=== PATIENT | male | born 1960 | race Native Hawaiian/Other Pacific Islander ===

== ENCOUNTER 2019-04-17 06:45 | Outpatient (CLI) | payer OTHER ==
[2019-04-17 07:56] LABS: POTASSIUM 5.1 mmol/L (3.6-5.2)
== END 2019-04-17 21:38 | disposition home or self-care (01) ==
LOC: LABW 06:45
PROVIDERS: Internal Medicine
DX: N18.9 Chronic kidney disease, unspecified (principal); E87.5 Hyperkalemia
CPT/HCPCS: 36415; 80048

== ENCOUNTER 2020-07-10 15:27 | Outpatient (CLI) | payer OTHER ==
[2020-07-10 16:01] LABS: PLATELET COUNT 136 K/uL (142-355)
[2020-07-10 16:05] LABS: POTASSIUM 5.8 mmol/L (3.6-5.2)
== END 2020-07-10 22:31 | disposition home or self-care (01) ==
LOC: LAB 15:27
PROVIDERS: Internal Medicine
DX: R19.7 Diarrhea, unspecified (principal); E11.9 Type 2 diabetes mellitus without complications; I25.10 Atherosclerotic heart disease of native coronary artery without angina pectoris; R31.9 Hematuria, unspecified
CPT/HCPCS: 36415; 80048; 81000; 83036; 83630; 85027; 87015; 87045; 87324; 87328; 87329; 87449; 87899

== ENCOUNTER 2020-11-19 14:45 | Inpatient (IN) | payer OTHER ==
[~2020-11-19] VITALS: Ht 185.4 cm; Wt 79.5 kg
[2020-11-19 17:35] LABS: PLATELET COUNT 105 K/uL (142-355)
[2020-11-19 17:52] LABS: POTASSIUM 5.8 mmol/L (3.6-5.2); SODIUM 135 mmol/L (136-145)
[2020-11-19 18:21] VITALS: BP 109/49; TEMP 98.2; Ht 185.4 cm; Wt 79.5 kg
--- NOTE | 2020-11-19 18:51 | NUR ---
11/19/2020 1850 PT MOVED TO ROOM 1124 COVID 19 POSTITVE.ORIENTED TO ROOM CALL LIGHT WITHIN REACH.CC
[2020-11-19] MEDS ORDERED: ALPR0.5T24 PO (19:18)
[2020-11-19] MEDS ORDERED: [UNRECOGNIZED DRUG - OTHER] SC (19:21)
[2020-11-19] MEDS ORDERED: TRICOR145 M1 PO (19:24)
[2020-11-19] MEDS ORDERED: TRESIBA100 UNIT/M SC (19:25)
[2020-11-19] MEDS ORDERED: ROSUVASTATIN CA40 MG PO (19:26)
[2020-11-19] MEDS ORDERED: BRILINTA90 MG PO (19:27)
[2020-11-19] MEDS ORDERED: FUROSEMIDE20 MG PO (19:28)
[2020-11-19] MEDS ORDERED: METO50TA27 PO (19:28)
[2020-11-19] MEDS ORDERED: ASPIRIN DR81 MG PO (19:29)
[2020-11-19] MEDS ORDERED: EDARBI PO (19:31)
[2020-11-19 19:43] VITALS: BP 105/43; TEMP 99.4
[2020-11-19 23:36] VITALS: BP 89/54; TEMP 98.8
[2020-11-20 04:12] VITALS: BP 93/36; TEMP 98.5
[2020-11-20 04:35] LABS: PLATELET COUNT 73 K/uL (142-355)
--- NOTE | 2020-11-20 04:48 | NUR ---
PATIENT IV SITE IN LF AC INFILTRATED. IT WAS D/C AND THE SITE IS CLEAN DRY AND INTACT. THE OLD CATHITER TIP IS INTACT. THE SEW SITE IS A 22G TO THE RT FOREARM. THE SITE IS PATIENT AND CLEAN DRY AND INTACT
--- NOTE | 2020-11-20 07:00 | NUR ---
REC'D REPORT FROM ZULEIMA MASTERSON RN
--- NOTE | 2020-11-20 07:30 | NUR ---
PT LAYING IN BED ON HIS BACK RESTING QUIETLY WITH EYES CLOSED. IVF NS INFUSING AT 200 ML/HR WITHOUT DIFFICULTY. PT V/S AND BLOOD SUGAR OBTAINED AT THIS TIME. PT DENIES ANY NEEDS OR C/O AT THIS TIME.
[2020-11-20 08:00] VITALS: BP 97/44; TEMP 97.9
--- NOTE | 2020-11-20 08:30 | NUR ---
NOTIFIED PT THAT I NEEDED HIM TO TRY AND VOID. IF UNABLE TO VOID AT THIS TIME I WOULD HAVE TO INSERT A TRUJILLO CATHETER PER DR. GUZMAN. PT STATES "OK, I CAN PROBABLY GO I JUST HAVE NOT GOTTEN UP TO TRY BECAUSE I AM COLD". INFORMED PT I WOULD BE BACK IN ABOUT 15 TO 20 MINUTES TO CHECK AND SEE IF HE WAS ABLE TO VOID. PT VERBALIZES UNDERSTANDING.
--- NOTE | 2020-11-20 08:45 | NUR ---
PT NOTED TO VOID 400CC DARK YELLOW URINE AT THIS TIME. DR. GUZMAN NOTIFIED. DR. GUZMAN STATES "OK GOOD, DID JESSENIA TELL YOU I NEEDED A SAMPLE FOR A UA AND BNP." WILL OBTAIN UA AND BNP PER DR. GUZMAN' ORDERES. DR. GUZMAN STATES "I'M OK WITH HIM NOT HAVING THE TRUJILLO, WE JUST NEED TO MONITOR HIS OUTPUT AND I NEED THAT UA AND BNP SO I CAN SEE IF HIS KIDNEYS ARE GOING TO START BACK UP OR IF I NEED TO SEE ABOUT GETTING HIM SOMEWHRE OR DR. HAIR([facility]) SEEING HIM, JUST GET IT NEXT TIME WILL BE FINE."
--- NOTE | 2020-11-20 09:45 | NUR ---
NEW BAG OF IV FLUIDS STARTED ON PT, AM MED GIVEN. AM ASSESSMENT COMPLETED AT THIS TIME. PT TOLERATED WELL. PT DENIES ANY C/O OR DIFFICULTYS.
--- NOTE | 2020-11-20 10:12 | NUR ---
PT TALKING ON CELL PHONE AT THIS TIME.
--- NOTE | 2020-11-20 11:30 | NUR ---
PT CALLED TO [facility] TO REPORT HE HAD UA SAMPLE. OBTAINED URINE FROM PT FOR UA. 400CC YELLOW URINE NOTED. PT TALKING ON PHONE AT THIS TIME. IVF INFUSING WITHOUT DIFFICULTY.
--- NOTE | 2020-11-20 11:45 | NUR ---
BNP OBTAINED PER MD ORDERS.
[2020-11-20 11:58] VITALS: BP 109/54; TEMP 97.8
--- NOTE | 2020-11-20 12:10 | NUR ---
DR. GUZMAN NOTIFIED PT'S ULTRASOUND RESULTS ARE BACK, LABS AND UA STILL PENDING AT THIS TIME.
--- NOTE | 2020-11-20 13:00 | NUR ---
VERIFIED WITH DR. GUZMAN THAT PT COULD EAT. PT GIVEN 2 GRAPE JUICES AT HIS REQUEST. PT LUNCH TRAY CARRIED IN. PT NOTED TO BE RESTING QUIETLY ON LEFT SIDE. NO DISTRESS NOTED AT THIS TIME. WILL CON'T TO MONITOR PT. PT MADE AWARE OF HIS LUNCH TRAY AND JUICE ON BEDSIDE TABLE.
[2020-11-20 13:33] LABS: POTASSIUM 5.5 mmol/L (3.6-5.2)
--- NOTE | 2020-11-20 13:48 | NUR ---
CAREN IN LAB REPORT'S CRITICAL CREATINE 5.6.
--- NOTE | 2020-11-20 13:53 | NUR ---
ATTEMPTED TO CALL DR. GUZMAN TO REPORT CRITICAL CREATININE. WILL CON'T TO CALL.
--- NOTE | 2020-11-20 14:00 | NUR ---
DR. GUZMAN NOTIFIED OF PT'S CREATININE LEVEL. NO NEW ORDERS REC'D AT THIS TIME. DR. GUZMAN STATES "[facility] AND SEE WHAT HE RECOMMENDS."
--- NOTE | 2020-11-20 14:30 | NUR ---
DR. GUZMAN AT PT'S BEDSIDE.
[2020-11-20 16:00] VITALS: BP 99/49; TEMP 97.9
[2020-11-20 20:00] VITALS: BP 110/56; TEMP 98.9
[2020-11-21] VITALS: BP 107/53; TEMP 99
[2020-11-21 04:00] VITALS: BP 112/79; TEMP 98.8
[2020-11-21 04:48] LABS: PLATELET COUNT 60 K/uL (142-355)
[2020-11-21 05:04] LABS: POTASSIUM 4.6 mmol/L (3.6-5.2)
--- NOTE | 2020-11-21 06:32 | NUR ---
CRITICAL LAB OF 4.4 CREATININE REPORTED BY LAB WORKER. NO NEW ORDERS GIVEN PER DR. WHITAKER AT THIS TIME. NO ACUTE DISTRESS NOTED WITH PATIENT WILL CONTINUE TO MONITOR.
--- NOTE | 2020-11-21 06:45 | NUR ---
REC'D REPORT FROM JAMES HARTLEY LPN. NO CHANGES ON PT DURING THE NIGHT.
--- NOTE | 2020-11-21 07:45 | NUR ---
PT RESTING QUIETLY AT THIS TIME NAD NOTED. PT IV FLUID BAG CHANGED OUT AT THIS TIME. IVF INFUSING WITHOUT DIFFICULTY TO 22G IV TO RFA. PT NOTED TO HAVE HEAD COVERED WITH BLANKETS. NAD NOTED.
[2020-11-21 07:50] VITALS: BP 90/45; TEMP 98.5
[2020-11-21 11:47] VITALS: BP 102/53; TEMP 98.6
--- NOTE | 2020-11-21 13:41 | NUR ---
PT NOTED TO BE LAYING IN BED ON HIS LEFT SIDE RESTING QUIETLY WITH EYES CLOSED. IVF INFUSING WITHOUT DIFFICULTY TO 22G IV TO RFA. PT BREATHING EVEN AND UNLABORED.
--- NOTE | 2020-11-21 14:30 | NUR ---
PT RESTING QUIETLY WITH EYES CLOSED ON HIS BACK. IVF INFUSING WITHOUT DIFFICULTY. PT FACE NOTED TO BE FLUSHED. REASSESSED PT'S TEMP FROM LUNCH TIME. PT TEMP NOTED TO BE 98.1 ORAL AT THIS TIME. PT GOING BACK TO SLEEP.
[2020-11-21 15:57] VITALS: BP 126/60; TEMP 98.7
[2020-11-21 20:00] VITALS: BP 125/59; TEMP 98.8
--- NOTE | 2020-11-21 20:20 | NUR ---
ENTERED PT'S ROOM AT THIS TIME. PATIENT AMBULATING BACK TO BED WITH NO ISSUES. HE DENIES ANY PAIN, DISCOMFORT OR CONCERNS. 22G TO RIGHT FOREARM PATENT AND INTACT. NO ERYTHEMA OR TENDERNESS NOTED. D5 W/ BICARB INFUSING @ 150ML/HR. HE DOES REPORT A SLIGHT DRY COUGH AT TIMES. NO N/V/D AT THIS TIME. BED LOCKED AND IN LOWEST POSITION. CALL LIGHT WITHIN EASY REACH.
--- NOTE | 2020-11-21 22:07 | NUR ---
D5 W/ SODIUM BICARB BAG CHANGED AT THIS TIME AND INFUSING @ 150ML/HR. PATIENT RESTING QUIETLY IN BED. RESPIRATIONS EVEN AND UNLABORED. CALL LIGHT WITHIN EASY REACH.
[2020-11-22] VITALS: BP 113/53; TEMP 99.3
[2020-11-22 04:00] VITALS: BP 107/52; TEMP 98.8
[2020-11-22 05:23] LABS: PLATELET COUNT 58 K/uL (142-355)
[2020-11-22 05:39] LABS: POTASSIUM 3.6 mmol/L (3.6-5.2)
[2020-11-22 07:55] VITALS: BP 123/70; TEMP 98.3
--- NOTE | 2020-11-22 10:13 | NUR ---
IV D/C'D WITH TIP INTACT PRESSURE DRESSING APPLIED. D/C INSTRUCTIONS GIVEN. PT VERBALIZED UNDERSTANDING. PT GETTING DRESSED.
--- NOTE | 2020-11-22 10:31 | NUR ---
PT D/C'D HOME VIA WC IN STABLE COND.
--- NOTE | 2020-11-22 10:31 | NUR ---
PT'S [facility] SENT HOME WITH PT.
== END 2020-11-22 10:31 | disposition home or self-care (01) | DRG 177 ==
LOC: MED/SURG 14:45
PROVIDERS: Family Medicine; ADMIT Internal Medicine Endocrinology, Diabetes & Metabolism; ATTEND Internal Medicine Endocrinology, Diabetes & Metabolism
DX: U07.1 COVID-19 (principal); K85.80 Other acute pancreatitis without necrosis or infection; N17.8 Other acute kidney failure; M62.82 Rhabdomyolysis; N18.4 Chronic kidney disease, stage 4 (severe); E11.22 Type 2 diabetes mellitus with diabetic chronic kidney disease; I12.9 Hypertensive chronic kidney disease with stage 1 through stage 4 chronic kidney disease, or unspecified chronic kidney disease; E87.5 Hyperkalemia; I25.10 Atherosclerotic heart disease of native coronary artery without angina pectoris; E78.2 Mixed hyperlipidemia; I95.89 Other hypotension
CPT/HCPCS: 36415; 80048; 80053; 80074; 81000; 82150; 82550; 82553; 82570; 82948; 83036; 83690; 83880; 84300; 84484; 85027; 87635; 93005; 96361; 96366; J1815; J3490; U0003

== ENCOUNTER 2020-11-29 12:32 | Outpatient (CLI) | payer OTHER ==
[~2020-11-29 12:32] MED LIST: ALPR0.5T24 PO; ASPIRIN DR81 MG PO; BRILINTA90 MG PO; EDARBI PO; FUROSEMIDE20 MG PO; METO50TA27 PO; ROSUVASTATIN CA40 MG PO; TRESIBA100 UNIT/M SC; TRICOR145 M1 PO; [UNRECOGNIZED DRUG - OTHER] SC
[2020-11-29 12:56] LABS: PLATELET COUNT 119 K/uL (142-355)
[2020-11-29 15:21] LABS: POTASSIUM 5.7 mmol/L (3.6-5.2)
== END 2020-11-29 21:33 | disposition home or self-care (01) ==
LOC: LABW 12:32
PROVIDERS: ATTEND Family Medicine
DX: R19.7 Diarrhea, unspecified (principal); E11.22 Type 2 diabetes mellitus with diabetic chronic kidney disease; K85.90 Acute pancreatitis without necrosis or infection, unspecified
CPT/HCPCS: 36415; 80053; 82150; 82272; 83690; 83735; 85027; 87015; 87045; 87324; 87328; 87329; 87425; 87449; 87899

== ENCOUNTER 2020-12-20 01:50 | Emergency (ER) | payer OTHER ==
[~2020-12-20] VITALS: Ht 185.4 cm; Wt 63.5 kg
[2020-12-20 02:19] LABS: PLATELET COUNT 101 K/uL (142-355)
[2020-12-20 02:26] LABS: POTASSIUM 4.8 mmol/L (3.6-5.2); SODIUM 136 mmol/L (136-145)
[2020-12-20 02:38] LABS: PARTIAL THROMBOPLASTIN TIME 29.2 SECONDS (24.5-33.6)
[2020-12-20 04:25] VITALS: BP 94/38; TEMP 97
== END 2020-12-20 05:19 | disposition short-term general hospital (02) ==
LOC: ED 01:50
PROVIDERS: Hospitalist
DX: I21.4 Non-ST elevation (NSTEMI) myocardial infarction (principal); I25.10 Atherosclerotic heart disease of native coronary artery without angina pectoris; N18.9 Chronic kidney disease, unspecified; U07.1 COVID-19
CPT/HCPCS: 36415; 36600; 80053; 82550; 82553; 82805; 83605; 83880; 84484; 85027; 85610; 85730; 87502; 87635; 87651; 93005; 96360; 96365; 96375; 99285; J1956; J2405; U0003